=== PATIENT | female | born 1980 | race African-American/Black ===

== ENCOUNTER 2023-10-01 09:18 | Emergency (ER) | payer MEDICAID ==
[~2023-10-01] VITALS: Ht 180.3 cm; Wt 170.1 kg
[2023-10-01 09:20] VITALS: BP_SYST 151; PULSE 94; RESP 19; TEMP 98.6; O2SAT 96
[2023-10-01] MEDS: ACETAMINOPHEN 500 MG TABLET PO ONE (09:47)
[2023-10-01] MEDS ORDERED: ACET-2634 PO (11:21)
[2023-10-01 15:18] VITALS: BP_SYST 138; PULSE 91; RESP 18; TEMP 98.3; O2SAT 94
== END 2023-10-01 15:18 | disposition home or self-care (01) ==
LOC: SED 09:18
DX: S09.90XA Unspecified injury of head, initial encounter (principal); Z88.0 Allergy status to penicillin; Z59.00 Homelessness unspecified; Z79.899 Other long term (current) drug therapy; W01.0XXA Fall on same level from slipping, tripping and stumbling without subsequent striking against object, initial encounter; Y93.89 Activity, other specified; Y92.89 Other specified places as the place of occurrence of the external cause; Y99.8 Other external cause status
CPT/HCPCS: 99283